=== PATIENT | male | born 1995 | race Caucasian/White ===

== ENCOUNTER 2025-04-08 17:32 | Emergency (ER) | payer SELFPAY ==
[2025-04-08 17:41] VITALS: BP 118/80
[2025-04-08 19:04] VITALS: BMI 38.7
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
== END 2025-04-08 19:35 | disposition home or self-care (01) ==
LOC: EMR 17:32
PROVIDERS: EMERGENCY PHYSICIAN Emergency Medicine
DX: M54.50 Low back pain, unspecified (principal); V43.52XA Car driver injured in collision with other type car in traffic accident, initial encounter; F31.9 Bipolar disorder, unspecified; F25.9 Schizoaffective disorder, unspecified
CPT/HCPCS: 99282

== ENCOUNTER 2025-06-15 21:47 | Emergency (ER) | payer SELFPAY ==
[2025-06-15 21:53] VITALS: BP 139/74
[2025-06-15 21:54] VITALS: BP 139/74
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
[2025-06-15 22:06] LABS: Hematocrit 40.5 % (39.0-52.0); Hemoglobin 13.2 g/dL (13.0-18.0); Mean Corp Hgb Conc. 32.6 g/dL (33.0-37.0); Mean Corpuscular Volume 85.6 fL (80.0-94.0); Nucleated Red Blood Cells % 0 % (-); Platelet Count 287 10^3/uL (130-400); Red Cell Dist. Width 12.4 % (11.5-14.5)
[2025-06-15 22:31] LABS: ALT (SGPT) 19 U/L (0-50); AST (SGOT) 25 U/L (17-59); Albumin 4.6 g/dl (3.5-5.0); Alkaline Phosphatase 64 U/L (38-126); Blood Urea Nitrogen 16 mg/dl (9-20); Calcium 10.1 mg/dl (8.4-10.2); Carbon Dioxide 27 mmol/L (22-30); Chloride 102 mmol/L (98-107); Estimated Creatinine Clearance > 125 ml/min; Glucose 127 mg/dl (70-99); Potassium 4.1 mmol/L (3.5-5.1); Sodium 135 mmol/L (135-145); Total Protein 7.2 g/dl (6.3-8.2); eGFR > 60.00
[2025-06-15 23:01] VITALS: BP 115/68
[2025-06-15 23:38] VITALS: BP 115/68
== END 2025-06-15 23:40 | disposition home or self-care (01) ==
LOC: EMR 21:47
PROVIDERS: Physician Assistant; EMERGENCY PHYSICIAN Emergency Medicine
DX: J45.901 Unspecified asthma with (acute) exacerbation (principal)
CPT/HCPCS: 99285; 71046; 80053; 85025; 93005